=== PATIENT | male | born 1960 | race Two or more races ===

== ENCOUNTER 2016-11-28 09:47 | Emergency (ER) | payer OTHER ==
[2016-11-28 10:05] VITALS: BMI 28.8
[2016-11-28 10:49] LABS: BASOPHIL 0.3 % (0-2.0); EOSINOPHIL 1.1 % (0-4.5); MCH 28.3 pg (25.7-33.7); MEAN CELL VOLUME 85.5 fl (80-96); MEAN PLT VOLUME 7.2 fl (7.5-11.1); PLATELET COUNT 173 K/MM3 (134-434); RDW 13.7 % (11.9-15.9); WHITE BLOOD COUNT 3.9 K/mm3 (4.0-10.0)
[2016-11-28] MEDS ORDERED: ASPIRIN 81 MG CHEWABLE TABLETS PO ONE (10:50)
--- NOTE | 2016-11-28 11:06 | PDOC ---
History of Present Illness <Maryann Canales - Last Filed: 11/28/16 12:53> - General History Source: Patient Exam Limitations: Language Barrier - History of Present Illness Presenting Symptoms: Chest Pain Timing/Duration: reports: constant Severity/Quality: reports: mild Location: reports: other (left chest wall, level of nipple, mid axillary line) Chest Pain Radiation: reports: arms Activities at Onset: reports: sleep Prior Chest Pain/Cardiac Workup: reports: No prior chest pain Modifying Factors: improves with: exercise Nitro Today/Relief: Yes: no nitro taken today Aspirin Received prior to arrival (Core Measure): Yes: no aspirin today Beta Rinku given by EMS (Core Measure): No Beta Rinku taken at Home (Core Measure): No Beta Rinku indicated at this time? (Core Measure): No Associated Symptoms: Yes: Denies symptoms <Harpreet Romo - Last Filed: 11/28/16 13:45> - General Chief Complaint: Chest Pain Stated Complaint: LT ARM PAIN Time Seen by Provider: 11/28/16 10:17 - History of Present Illness Initial Comments: 11/28/16 10:57 56 yo M with PMHx of HTN presents with 10 day history of chest pain. He describes constant 3/10 sharp left sided chest pain at level of nipple mid axillary line that radiates down left arm . Pain can increase for 5-10min to 6/ 10 especially when lying down at night. Pain improves with activity . Denies prior episodes in past, diaphoresis, recent illness, fevers, or chills. Last saw a doctor 7 mo. ago and was told his sugars and BP were high. Advised to lose weight and avoid sugar. He has recently in past month started a new job which requires physical activity of pushing, pulling and lifting. Denies SOB, palpitations, abdominal pain, or urinary symptoms. (Harpreet Romo) Past History <Maryann Canales - Last Filed: 11/28/16 12:53> - Past Medical History HTN: Yes (pre) Hypercholesterolemia: Yes - Psycho/Social/Smoking Cessation Hx Anxiety: No Suicidal Ideation: No Smoking History: Never smoked Have you smoked in the past 12 months: No Information on smoking cessation initiated: No Hx Alcohol Use: No Drug/Substance Use Hx: No Substance Use Type: None <Harpreet Romo - Last Filed: 11/28/16 13:45> - Past Medical History Allergies/Adverse Reactions: Allergies Allergy/AdvReac Type Severity Reaction Status Date / Time No Known Allergies Allergy Verified 11/28/16 10:02 - Vital Signs Last Vital Signs Temp Pulse Resp BP Pulse Ox 98.2 F 91 H 18 149/98 99 11/28/16 10:02 11/28/16 10:02 11/28/16 10:02 11/28/16 10:02 11/28/16 10:02 Heart Score/ECG Review - History History: Slightly suspicious - Electrocardiogram EKG: Normal - Age Age: 45-65 - Risk Factors Risk Factors Heart Score: Yes Hx Hypertension Based on the list above the patient has:: 1-2 risk factors - Troponin Troponin: </= normal limit - Score Heart Score - Total: 2 - ECG Intrepretation Rhythm: Regular Rhythm - Burdett Burdett: Normal - ECG Impressions Normal ECG: Yes <Harpreet Romo - Last Filed: 11/28/16 13:45> Eligibility Checklist For AMI - INCLUSION CRITERIA Prolonged (>30 minutes)ischemic pain: No 12 Lead ECG indicates AMI: No ST elevation >1 mm in at least 2 limb leads: No ST elevation>2 mm in at least 2 contiguous precordial leads: No LBBB with clinical symptoms consistent with an AMI: No <Harpreet Romo - Last Filed: 11/28/16 13:45> ED Treatment Course - LABORATORY CBC & Chemistry Diagram: 11/28/16 10:30 11/28/16 10:30 <Maryann Canales - Last Filed: 11/28/16 12:53> - LABORATORY CBC & Chemistry Diagram: 11/28/16 10:30 11/28/16 10:30 <Harpreet Romo - Last Filed: 11/28/16 13:45> - ADDITIONAL ORDERS Additional order review: Laboratory Results 11/28/16 11/28/16 10:30 10:30 Sodium 141 Potassium 4.1 Chloride 103 Carbon Dioxide 29 Anion Gap 9 BUN 9 Creatinine 0.7 Creat Clearance w eGFR > 60 Random Glucose 96 Calcium 8.3 L Magnesium 2.1 Total Bilirubin 0.4 AST 27 ALT 32 Alkaline Phosphatase 64 Creatine Kinase 164 Creatine Kinase Index 0.8 CK-MB (CK-2) 1.398 CK-MB (CK-2) Rel Index Cancelled Troponin I < 0.02 Total Protein 6.7 Albumin 3.7 11/28/16 10:30 RBC 5.00 MCV 85.5 MCHC 33.0 RDW 13.7 MPV 7.2 L Neutrophils % 58.0 Lymphocytes % 29.4 Monocytes % 11.2 H Eosinophils % 1.1 Basophils % 0.3 - RADIOLOGY Radiology Studies Ordered: Category Date Time Status CXRPORT [CHEST X-RAY PORTABLE*] [RAD] Stat Radiology 11/28/16 12:20 Completed - Medications Given in the ED: ED Medications Discontinued Medications Generic Name Dose Route Start Last Admin Trade Name Fifi PRN Reason Stop Dose Admin Aspirin 162 mg 11/28/16 10:50 11/28/16 11:10 Asa - PO 11/28/16 10:51 162 mg ONCE ONE Administration Medical Decision Making <Maryann Canales - Last Filed: 11/28/16 12:53> <Harpreet Romo - Last Filed: 11/28/16 13:45> - Medical Decision Making 11/28/16 11:43 A:56 yo M with PMHx of HTN presents with 10 day history of chest pain. Atypical chest pain will r/o ACS. P: * CBC, CMP, Caridiac profile * EKG and cardiac monitoring. * ASA given 162mg PO 11/28/16 13:43 * CXR and Cardiac profile negative. * ACS ruled out * discharged home with quick follow up . (Harpreet Romo) *DC/Admit/Observation/Transfer - Discharge Dispostion Admit: No <Maryann Canales - Last Filed: 11/28/16 12:53> <Harpreet Romo - Last Filed: 11/28/16 13:45> Diagnosis at time of Disposition: Atypical chest pain - Discharge Dispostion Disposition: HOME Condition at time of disposition: Stable - Referrals Referrals: Clara Horton MD [Staff Physician] - - Patient Instructions Printed Discharge Instructions: DI for Atypical Chest Pain Print Language: INDONESIAN
[2016-11-28] MEDS ORDERED: ASPIRIN 81 MG CHEWABLE TABLETS ONE (11:09)
--- NOTE | 2016-11-28 11:10 | PDOC ---
[id number] I have performed the following: I have examined & evaluated the patient, The case was reviewed & discussed with the resident, I agree w/resident's findings & plan, Exceptions are as noted - HPI HPI: 56 yo M hx HTN presents with cp waxing and waving for past 10 days. He notes that the pain localizes to the L axilla. It is better with exertion and heavy lifting. It migrates to L arm. No SOB, FALCON, or change in exercise tolerance. He has not taken anything for the pain. He states that he does not have a PMD that he regularly follows with, he was previously going to a clinic. - Physicial Exam PE: GENERAL: Awake, alert, and fully oriented, in no acute distress HEAD: No signs of trauma EYES: PERRLA, EOMI, sclera anicteric, conjunctiva clear ENT: Auricles normal inspection, hearing grossly normal, nares patent, oropharynx clear without exudates. Moist mucosa NECK: Normal ROM, supple, no lymphadenopathy, JVD, or masses LUNGS: Breath sounds equal, clear to auscultation bilaterally. No wheezes, and no crackles. Pain is not reproducible. HEART: Regular rate and rhythm, normal S1 and S2, no murmurs, rubs or gallops ABDOMEN: Soft, nontender, normoactive bowel sounds. No guarding, no rebound. No masses EXTREMITIES: Normal range of motion, no edema. No clubbing or cyanosis. No cords, erythema, or tenderness NEUROLOGICAL: Cranial nerves II through XII grossly intact. Normal speech, normal gait SKIN: Warm, Dry, normal turgor, no rashes or lesions noted. - Medical Decision Making Pt presents with atypical chest pain for 10 days. Will obtain EKG, CXR, and 1 set of CE. If wnl, will DC home with outpatient clinic f/u. Heart Score/ECG Review - History History: Slightly suspicious - Electrocardiogram EKG: Normal - Age Age: 45-65 - Risk Factors Risk Factors Heart Score: Yes Hx Hypertension Based on the list above the patient has:: 1-2 risk factors - Troponin Troponin: </= normal limit - Score Heart Score - Total: 2 - ECG Impressions Comment:: EKG read 10:14- NSR 85 bpm, no acute ST/T changes
[2016-11-28 11:12] LABS: ALBUMIN 3.7 g/dl (3.4-5.0); ANION GAP 9 (8-16); BILIRUBIN,TOTAL 0.4 mg/dL (0.2-1.0); CALCIUM 8.3 mg/dL (8.5-10.1); CO2 29 mmol/L (21-32); COCKROFT - GAULT 147.05; CREATININE 0.7 mg/dL (0.7-1.3); GLUCOSE,RANDOM 96 mg/dL (74-106); SGPT/ALT 32 U/L (12-78); TOT PROT 6.7 g/dl (6.4-8.2)
[2016-11-28 11:15] LABS: ALK PHOS 64 U/L (45-117); TROPONIN I < 0.02 ng/ml (0.00-0.05)
[2016-11-28 11:17] LABS: SGOT/AST 27 U/L (15-37)
[2016-11-28 12:11] LABS: MAGNESIUM 2.1 mg/dL (1.8-2.4)
[2016-11-28 14:04] VITALS: BP 138/66; PULSE 73; TEMP 97.9
--- NOTE | 2016-11-28 23:01 | EKG ---
Test Reason : Blood Pressure : / mmHG Vent. Rate : 085 BPM Atrial Rate : 085 BPM P-R Int : 164 ms QRS Dur : 090 ms QT Int : 366 ms P-R-T Axes : 047 030 042 degrees QTc Int : 435 ms NORMAL SINUS RHYTHM NORMAL ECG NO PREVIOUS ECGS AVAILABLE Confirmed by LOGAN PERES MD ([id number]) on 11/28/2016 11:01:12 PM Referred By: Confirmed By:LOGAN PERES MD
== END 2016-11-28 13:30 | disposition home or self-care (01) ==
LOC: JER 09:47
DX: R07.89 Other chest pain (principal); I10 Essential (primary) hypertension; R73.03 Prediabetes; X50.0XXA Overexertion from strenuous movement or load, initial encounter; X50.9XXA Other and unspecified overexertion or strenuous movements or postures, initial encounter; Y93.89 Activity, other specified; Y92.69 Other specified industrial and construction area as the place of occurrence of the external cause; Y99.0 Civilian activity done for income or pay
CPT/HCPCS: 36415; 71010-TC; 80053; 82550; 82553; 83735; 84484; 85025; 93005; 93010; 99283-25

== ENCOUNTER 2017-07-16 09:36 | Day surgery (SDC) | payer OTHER ==
[2017-07-13 17:08] VITALS: BMI 27.9
[2017-07-16] MEDS ORDERED: LEVOFLOXACIN 500 MG PREMIX BAG IVPB ONE (16:35)
[2017-07-16] MEDS ORDERED: MIDAZOLAM HCL 2 MG/2 ML SINGLE DOSE VIAL ONE (16:36)
[2017-07-16] MEDS ORDERED: PROPOFOL 20 ML ONE ×2 (16:37)
--- NOTE | 2017-07-16 17:14 | OP ---
Operative Note - Note: Operative Date: 07/16/17 Pre-Operative Diagnosis: urethral stricture Operation: cystoscopy/laser urethrotomy Findings: 2 cm anterior urethral stricture Post-Operative Diagnosis: Same as Pre-op Surgeon: Eamon Ghosh Anesthesia: General Drains & Tubes with Location: 20 fr silastic ortiz catheter
[2017-07-16] MEDS ORDERED: oxyCODONE HCL 5 MG TABLET PO PRN (17:15)
[2017-07-16] MEDS ORDERED: LACTATED RINGERS SOLUTION 1,000 ML IV SCH (17:15)
[2017-07-16] MEDS ORDERED: ONDANSETRON 4 MG/2 ML VIAL IVPUSH PRN (17:15)
[2017-07-16 17:44] VITALS: TEMP 98.4
[2017-07-16 20:26] VITALS: BP 144/78; PULSE 74
--- NOTE | 2017-07-16 22:40 | OP ---
DATE OF OPERATION: 07/16/2017 PREOPERATIVE DIAGNOSIS: Urethral stricture. POSTOPERATIVE DIAGNOSIS: Urethral stricture. PROCEDURE: Cystoscopy and laser urethrotomy. ATTENDING: Ana Owen MD ANESTHESIA: General. DESCRIPTION OF OPERATION: The patient was brought in the operating room and placed in supine position on the operating room table. General anesthesia was administered. The patient was then placed in the dorsal lithotomy position and prepped and draped in the usual sterile manner. Cystoscopy was performed, and an anterior stricture was noted. A wire was then passed proximally into the bladder under fluoroscopic guidance. With the wire in the bladder, used as a guidance aid, a holmium laser fiber was utilized. The holmium laser was utilized to make an incision at the 12 o'clock position. The length of the stricture was 2 cm. It was successfully incised at the 12 o'clock position without any bleeding. The bladder was entered and noted to have 1+ bladder trabeculation. No evidence of stones or neoplasm was noted. A 2+ obstructive prostate was noted. At this point, the cystoscope was removed, and a 20-[place] Silastic catheter was placed. The patient had received Levaquin preoperatively for surgical prophylaxis. The disposition of the patient to the recovery room. No complications were noted. ANA OWEN M.D. [id number]
== END 2017-07-16 19:40 | disposition home or self-care (01) ==
LOC: JASU-SURG 09:36
PROVIDERS: ATTEND Urology
PROC: 0TFD8ZZ Fragmentation in Urethra, Via Natural or Artificial Opening Endoscopic (ICD-10-PCS; principal; 2017-07-16 11:00)
DX: N35.9 Urethral stricture, unspecified (principal)
CPT/HCPCS: 94760

== ENCOUNTER 2020-01-26 11:49 | Day surgery (SDC) | payer OTHER ==
[2020-01-26 12:19] VITALS: BMI 30.4
[2020-01-26] MEDS ORDERED: MIDAZOLAM HCL 2 MG/2 ML SINGLE DOSE VIAL ONE (15:44)
[2020-01-26] MEDS ORDERED: KETOROLAC TROMETHAMINE 30 MG/1 ML VIAL ONE (15:44)
--- NOTE | 2020-01-26 16:08 | OP ---
Operative Note - Note: Operative Date: 01/26/20 Pre-Operative Diagnosis: Left Renal stone Operation: Left ESWL Findings: 6 mm mid pole left renal stone Post-Operative Diagnosis: Same as Pre-op Anesthesia: Fractional Estimated Blood Loss (mls): 0 Operative Report Dictated: Yes
[2020-01-26 17:38] VITALS: PULSE 75; TEMP 97.9
[2020-01-26 18:03] VITALS: BP 125/82
--- NOTE | 2020-01-27 09:40 | OP ---
DATE OF OPERATION: DATE OF DICTATION: 01/26/2020 PREOPERATIVE DIAGNOSIS: Left renal stone. POSTOPERATIVE DIAGNOSIS: Left renal stone. PROCEDURE: Left extracorporeal shockwave lithotripsy. ATTENDING: Ana Owen MD ANESTHESIA: Fractional. DESCRIPTION OF OPERATION: Patient was brought in the operating room and placed in a supine position on the operating room table. Ultrasonography and fluoroscopy were performed. A 6-mm left midpole renal stone was identified. At this point anesthesia and preoperative antibiotics were administered. Lithotripsy was then performed; 2500 impulses at 17 joules of power were administered to the stone with excellent fragmentation of the stone noted under realtime ultrasonography and fluoroscopy. No complications were noted. The patient tolerated the procedure very well. ANA OWEN M.D. /[id number]
== END 2020-01-26 17:45 | disposition home or self-care (01) ==
LOC: JASU-SURG 11:49
PROVIDERS: ATTEND Urology
PROC: 0TF4XZZ Fragmentation in Left Kidney Pelvis, External Approach (ICD-10-PCS; principal; 2020-01-26 17:00)
DX: N20.0 Calculus of kidney (principal)

== ENCOUNTER 2020-02-09 12:24 | Day surgery (SDC) | payer OTHER ==
[2020-02-05 16:28] VITALS: BMI 30.4
[2020-02-09] MEDS ORDERED: PROPOFOL 20 ML ONE ×3 (14:04)
--- NOTE | 2020-02-09 14:34 | OP ---
Operative Note - Note: Operative Date: 02/09/20 Pre-Operative Diagnosis: Right renal stone Operation: Right ESWL Findings: 6 mm mid pole Right renal stone Post-Operative Diagnosis: Same as Pre-op Surgeon: Eamon Ghosh Anesthesia: Fractional Estimated Blood Loss (mls): 0 Operative Report Dictated: Yes
[2020-02-09 16:13] VITALS: BP 147/86; PULSE 77; TEMP 98
--- NOTE | 2020-02-09 20:41 | OP ---
DATE OF OPERATION: 02/09/2020 PREOPERATIVE DIAGNOSIS: Right renal stone. POSTOPERATIVE DIAGNOSIS: Right renal stone. PROCEDURE: Extracorporeal shockwave lithotripsy. ATTENDING: Ana Ghosh M.D. ANESTHESIA: Fractional. DESCRIPTION OF PROCEDURE: Patient was brought in the operating room, placed in a supine position on the operating room table. Ultrasonography and fluoroscopy were performed. A 6-mm mid right ureteral stone was identified anesthesia and preoperative antibiotics were administered. Shockwave lithotripsy was then performed. 2500 impulses at 17 joules of power were administered to the stone under real-time ultrasonography and fluoroscopy. Excellent fragmentation of the stone was noted. There were no complications noted. DISPOSITION: The patient was to recovery room. ANA OWEN M.D. SE/[id number]
== END 2020-02-09 16:14 | disposition home or self-care (01) ==
LOC: JASU-SURG 12:24
PROVIDERS: ATTEND Urology
PROC: 0TF3XZZ Fragmentation in Right Kidney Pelvis, External Approach (ICD-10-PCS; principal; 2020-02-09 13:15)
DX: N20.0 Calculus of kidney (principal)

== ENCOUNTER 2021-01-11 09:43 | Emergency (ER) | payer OTHER ==
[2021-01-11 09:53] VITALS: BP 144/75; PULSE 90; TEMP 98.8; BMI 27.0
== END 2021-01-11 10:36 | disposition home or self-care (01) ==
LOC: JERFT 09:43
DX: M77.32 Calcaneal spur, left foot (principal)
CPT/HCPCS: 73630-TC-LT; 99283-25

== ENCOUNTER 2021-04-10 20:31 | Emergency (ER) | payer OTHER ==
[2021-04-10 21:06] VITALS: BP 150/89; PULSE 82; TEMP 98.3; BMI 26.8
[2021-04-10] MEDS ORDERED: ACETAMINOPHEN 325 MG TABLET (FP) PO ONE (22:22)
[2021-04-10] MEDS ORDERED: ACETAMINOPHEN 325 MG TABLET (FP) ONE (22:27)
== END 2021-04-11 00:15 | disposition left against medical advice (07) ==
LOC: JER 20:31
DX: R51.9 Headache, unspecified (principal)
CPT/HCPCS: 99283-25

== ENCOUNTER 2023-07-21 10:02 | Emergency (ER) | payer OTHER ==
[2023-07-21 10:19] VITALS: BP 132/72; PULSE 95; RESP 18; TEMP 98; BMI 28.8
[2023-07-21] MEDS ORDERED: SODIUM CHLORIDE 0.9% 500 ML INFUS.BAG IV ONE (11:23)
[2023-07-21] MEDS ORDERED: ACETAMINOPHEN 500 MG TABLET (FP) PO ONE (12:09)
[2023-07-21 12:10] LABS: EPI CELLS 11 /uL (0-25.1); HYALINE CASTS 1 /uL (0-3.1); PH,URINE 5.5 (5.0-8.0); URINE APPEARANCE CLEAR; URINE BACTERIA 143 /uL (0-1359); URINE BILIRUBIN NEGATIVE (NEGATIVE); URINE COLOR DK YELLOW; URINE GLUCOSE (UA) NEGATIVE (NEGATIVE); URINE KETONE NEGATIVE (NEGATIVE); URINE LEUK ESTERASE 1+ (NEGATIVE); URINE NITRITE NEGATIVE (NEGATIVE); URINE PROTEIN 1+ (NEGATIVE); URINE RBC 48 /uL (0-23.9); URINE WBC 88 /uL (0-25.8)
[2023-07-21] MEDS ORDERED: ACETAMINOPHEN 500 MG TABLET (FP) ONE (12:23)
[2023-07-21 12:32] LABS: POTASSIUM 4.1 mmol/L (3.5-5.1)
[2023-07-21 12:33] LABS: CALCIUM 8.9 mg/dL (8.5-10.1)
[2023-07-21 12:34] LABS: ALBUMIN 3.2 g/dl (3.4-5.0); BLOOD UREA NITROGEN 12.8 mg/dL (7-18); MAGNESIUM 2.3 mg/dL (1.8-2.4)
[2023-07-21 12:37] LABS: CREATININE 0.9 mg/dL (0.55-1.3)
[2023-07-21 12:38] LABS: BILIRUBIN,TOTAL 0.5 mg/dL (0.2-1)
[2023-07-21 12:39] LABS: TOT PROT 7.2 g/dl (6.4-8.2)
[2023-07-21 12:45] LABS: BASO % 0.4 % (0-2.0); HEMATOCRIT 42.2 % (35.4-49); HEMOGLOBIN 13.8 GM/dL (11.7-16.9); LYMPH % 7.3 % (8-40); MCH 27.5 pg (25.7-33.7); MCHC 32.6 g/dl (32.0-35.9); MEAN CELL VOLUME 84.6 fl (80-96); MEAN PLT VOLUME 7.8 fl (7.5-11.1); NEUT % 83.3 % (42.8-82.8); PLATELET COUNT 274 10^3/uL (134-434); RBC 4.99 M/mm3 (4.00-5.60); RDW 13.8 % (11.9-15.9); WHITE BLOOD COUNT 18.9 K/mm3 (4.0-10.0)
== END 2023-07-21 13:52 | disposition home or self-care (01) ==
LOC: JER 10:02
DX: R42 Dizziness and giddiness (principal); R53.83 Other fatigue; M79.10 Myalgia, unspecified site; U07.1 COVID-19; N30.00 Acute cystitis without hematuria
CPT/HCPCS: 0241U-QW; 36415; 71045-TC-FY; 80053; 81003; 83735; 84484; 85025; 87086; 93005; 93010; 99285-25